=== PATIENT | female | born 1975 | race Caucasian/White ===

== ENCOUNTER 2023-07-10 12:22 | Inpatient (IN) | payer MEDICAID ==
[~2023-07-10] VITALS: Ht 177.8 cm; Wt 80.2 kg
[2023-07-10] MEDS ORDERED: HYDROcodone-ACET 10/325MG TAB PO ONE (13:30)
[2023-07-10 14:12] LABS: Basophils # (auto) 0 10 ^3/uL (0-0.2); Eosinophils # (auto) 0.1 10 ^3/uL (0-0.8); Hemoglobin 10.6 g/dL (12.2-16.2); Lymphocytes # (auto) 1.4 10 ^3/uL (0.4-5.4); Mean Corpuscular Hgb Conc. 30.5 g/dL (32.0-36.0); Monocytes # (auto) 0.6 10 ^3/uL (0-1.3); Nucleated Red Blood Cells % 0.1 %
[2023-07-10 14:14] LABS: Basophils % (auto) 0.7 % (0.0-2.0); Eosinophils % (auto) 2.1 % (0.0-7.0); Hematocrit 34.8 % (36.0-46.0); Lymphocytes % (auto) 25.1 % (10.0-50.0); Mean Corpuscular Hemoglobin 22.3 pg (28.0-32.0); Mean Corpuscular Volume 73.3 fL (80.0-100.0); Monocytes % (auto) 10.2 % (0.0-12.0); Neutrophils # (auto) 3.5 10 ^3/uL (1.6-8.6); Neutrophils % (auto) 61.9 % (37.0-80.0); Red Blood Cells 4.75 10^6/uL (4.0-5.20); White Blood Cell 5.6 10^3/uL (4.4-10.8)
[2023-07-10 14:15] VITALS: PULSE 90; RESP 15; O2SAT 98
[2023-07-10 14:16] LABS: Chloride 106 mmol/L (98-107); Potassium 4.1 mmol/L (3.5-5.1); Sodium 140 mmol/L (136-145)
[2023-07-10 14:17] LABS: Anion Gap 7 (5-15); Calcium 9.8 mg/dL (8.5-10.1); Carbon Dioxide 27 mmol/L (20-30)
[2023-07-10 14:22] LABS: BUN/Creatinine Ratio 16.7 (10.0-20.0); Blood Urea Nitrogen 14 mg/dL (9-23); Glucose 78 mg/dL (74-106)
[2023-07-10 14:25] LABS: Urine Epithelial Cast None Seen /hpf (<5)
[2023-07-10 14:26] LABS: Red Cell Distribution Width 20.8 % (11.8-14.3)
[2023-07-10 14:44] LABS: Amphetamine Screen, Urine Pos (NEGATIVE); Barbiturate Scree,Urine Neg (NEGATIVE); Benzodiazephine Screen, Urine Pos (NEGATIVE); Cannabinoid Screen, Urine Neg (NEGATIVE); Cocaine Screen, Urine Neg (NEGATIVE); Opiate Scree,Urine Neg (NEGATIVE); Phencyclidine Screen, Urine Neg (NEGATIVE)
[2023-07-10 14:45] LABS: Urine Bacteria FEW /hpf (None Seen); Urine Blood Negative /uL (Negative); Urine Clarity HAZY (Clear); Urine Color Yellow (Yellow); Urine Mucus FEW (None Seen); Urine Protein, UAD Negative (Negative); Urine Specific Gravity 1.018 (1.001-1.035); Urine Urobilinogen Normal (Negative); Urine WBC 6 /hpf (0 - 5); Urine pH 6.5 (5.0-8.0)
[2023-07-10 15:00] LABS: Platelet Estimate Adequate
[2023-07-10 15:03] LABS: Anisocytosis Slight
[2023-07-10 15:04] LABS: Hypochromia Moderate
[2023-07-10 15:05] LABS: Stomatocytes Few
[2023-07-10 15:06] LABS: Ovalocytes FEW
[2023-07-10] MEDS ORDERED: NITROGLYCERIN 0.4 MG SL TAB SL PRN (16:45)
[2023-07-10] MEDS ORDERED: HYDROmorphone HCL 2 MG/ML VL/or syr IV PRN (16:45)
[2023-07-10] MEDS ORDERED: SOD CHL 0.45% 1,000 ML IV ONE (16:45)
[2023-07-10] MEDS ORDERED: MORPHINE SULFATE INJ 2 MG/ml SYRG IV PRN (16:45)
[2023-07-10] MEDS: KETOROLAC TROMETH 30 MG/ML 1ML VIAL IV SCH ×2 (18:40→22:17)
[2023-07-10 19:30] VITALS: PULSE 80; RESP 16; O2SAT 98
[2023-07-10] MEDS: HYDROmorphone HCL 2 MG/ML VL/or syr IV PRN (21:36)
[2023-07-10] MEDS: PANTOPRAZOLE 40 MG TAB PO SCH (21:36)
[2023-07-10] MEDS ORDERED: METOPROLOL TARTRATE 25 MG TAB PO ONE (22:00)
[2023-07-11] VITALS (8 sets, daily range): BP systolic 115–152; BP diastolic 62–101; PULSE 61–90; RESP 16–20; TEMP 97.6–98.8; O2SAT 95–98
[2023-07-11] MEDS ORDERED: METH-1181 PO (01:16)
[2023-07-11] MEDS ORDERED: HYDR-4072 PO (01:16)
[2023-07-11] MEDS ORDERED: GABA-339 PO (01:16)
[2023-07-11] MEDS ORDERED: PANT40T PO (01:16)
[2023-07-11] MEDS: HYDROmorphone HCL 2 MG/ML VL/or syr IV PRN ×3 (02:09→20:07)
[2023-07-11] MEDS: KETOROLAC TROMETH 30 MG/ML 1ML VIAL IV SCH ×4 (05:40→23:00)
[2023-07-11 06:27] LABS: Basophils # (auto) 0 10 ^3/uL (0-0.2); Basophils % (auto) 0.5 % (0.0-2.0); Eosinophils # (auto) 0.2 10 ^3/uL (0-0.8); Hemoglobin 9.2 g/dL (12.2-16.2); Mean Corpuscular Hemoglobin 22.3 pg (28.0-32.0); Nucleated Red Blood Cells % 0.1 %; Red Blood Cells 4.13 10^6/uL (4.0-5.20); Red Cell Distribution Width 20.3 % (11.8-14.3)
[2023-07-11 06:30] LABS: Eosinophils % (auto) 3.4 % (0.0-7.0); Hematocrit 30.3 % (36.0-46.0); Lymphocytes # (auto) 1.9 10 ^3/uL (0.4-5.4); Mean Corpuscular Hgb Conc. 30.5 g/dL (32.0-36.0); Mean Corpuscular Volume 73.2 fL (80.0-100.0); Monocytes # (auto) 0.7 10 ^3/uL (0-1.3); Monocytes % (auto) 13.6 % (0.0-12.0); Neutrophils # (auto) 2.5 10 ^3/uL (1.6-8.6); Neutrophils % (auto) 47.5 % (37.0-80.0); White Blood Cell 5.3 10^3/uL (4.4-10.8)
[2023-07-11 06:41] LABS: Alanine Aminotransferase 32 U/L (7-40); Albumin 3.8 g/dL (3.2-4.8); Alkaline Phosphatase 105 U/L (46-116); Anion Gap 7 (5-15); Aspartate Aminotransferase 27 U/L (13-40); BUN/Creatinine Ratio 18.1 (10.0-20.0); Blood Urea Nitrogen 17 mg/dL (9-23); Calcium 9.5 mg/dL (8.5-10.1); Carbon Dioxide 27 mmol/L (20-30); Chloride 105 mmol/L (98-107); Cholesterol 167 mg/dL (< 200); Glucose 93 mg/dL (74-106); HDL Cholesterol 31 mg/dL (40-59); LDL Cholesterol 113 mg/dL (< 100); Potassium 4.1 mmol/L (3.5-5.1); Sodium 139 mmol/L (136-145); Triglycerides 173 mg/dL (< 150)
[2023-07-11 06:42] LABS: Bilirubin, Total 0.2 mg/dL (0.2-1.0); Total Protein 5.9 g/dL (5.7-8.2)
[2023-07-11] MEDS ORDERED: IOHEXOL 350 MG/ML 100ML IJ ONE (08:22)
[2023-07-11] MEDS ORDERED: OMNIPAQUE 12mg/ml 500ml ORAL SOLUTION PO ONE (09:18)
[2023-07-11] MEDS: PANTOPRAZOLE 40 MG TAB PO SCH (11:00)
[2023-07-11] MEDS ORDERED: HYDROcodone-ACET 10/325MG TAB PO PRN (18:00)
[2023-07-11] MEDS: METHOCARBAMOL 500 MG TAB PO SCH (21:42)
[2023-07-12] VITALS (8 sets, daily range): BP systolic 116–165; BP diastolic 73–92; PULSE 76–88; RESP 14–20; TEMP 97.1–98.2; O2SAT 97–99
[2023-07-12] MEDS: HYDROmorphone HCL 2 MG/ML VL/or syr IV PRN ×4 (03:07→21:30)
[2023-07-12] MEDS: KETOROLAC TROMETH 30 MG/ML 1ML VIAL IV SCH ×4 (04:26→22:30)
[2023-07-12 07:02] LABS: Basophils # (auto) 0 10 ^3/uL (0-0.2); Eosinophils # (auto) 0.2 10 ^3/uL (0-0.8); Lymphocytes # (auto) 1.4 10 ^3/uL (0.4-5.4); Monocytes # (auto) 0.7 10 ^3/uL (0-1.3); Nucleated Red Blood Cells % 0.1 %; Red Blood Cells 4.04 10^6/uL (4.0-5.20)
[2023-07-12 07:05] LABS: Basophils % (auto) 0.2 % (0.0-2.0); Eosinophils % (auto) 3.7 % (0.0-7.0); Hematocrit 29.7 % (36.0-46.0); Hemoglobin 9.3 g/dL (12.2-16.2); Lymphocytes % (auto) 23.8 % (10.0-50.0); Mean Corpuscular Hgb Conc. 31.2 g/dL (32.0-36.0); Mean Corpuscular Volume 73.6 fL (80.0-100.0); Monocytes % (auto) 11.7 % (0.0-12.0); Neutrophils # (auto) 3.5 10 ^3/uL (1.6-8.6); Neutrophils % (auto) 60.6 % (37.0-80.0); Red Cell Distribution Width 19.9 % (11.8-14.3); White Blood Cell 5.8 10^3/uL (4.4-10.8)
[2023-07-12 07:24] LABS: Anion Gap 9 (5-15); Carbon Dioxide 23 mmol/L (20-30); Chloride 103 mmol/L (98-107); Potassium 4.4 mmol/L (3.5-5.1); Sodium 135 mmol/L (136-145)
[2023-07-12 07:25] LABS: Calcium 9.2 mg/dL (8.7-10.4)
[2023-07-12 07:30] LABS: BUN/Creatinine Ratio 16.5 (10.0-20.0); Blood Urea Nitrogen 16 mg/dL (9-23); Glucose 108 mg/dL (74-106)
[2023-07-12 07:31] LABS: % Iron Saturation 7.6 % (15-50)
[2023-07-12] MEDS: METHOCARBAMOL 500 MG TAB PO SCH ×2 (09:30→22:30)
[2023-07-12] MEDS: PANTOPRAZOLE 40 MG TAB PO SCH (09:30)
[2023-07-13] VITALS (7 sets, daily range): BP systolic 126–154; BP diastolic 76–88; PULSE 76–86; RESP 16–20; TEMP 97.4–98.7; O2SAT 95–98
[2023-07-13] MEDS: SULFAMETHOX W/TRIMETH(800/160MG) DS TAB PO SCH ×3 (00:21→22:31)
[2023-07-13] MEDS: KETOROLAC TROMETH 30 MG/ML 1ML VIAL IV SCH ×4 (04:31→22:31)
[2023-07-13 06:24] LABS: Urine Epithelial Cast None Seen /hpf (<5)
[2023-07-13 06:45] LABS: Urine Bacteria NONE SEEN /hpf (None Seen); Urine Blood Negative /uL (Negative); Urine Clarity Clear (Clear); Urine Protein, UAD Negative (Negative); Urine Specific Gravity 1.009 (1.001-1.035); Urine Urobilinogen Normal (Negative); Urine WBC <1 /hpf (0 - 5); Urine pH 5.5 (5.0-8.0)
[2023-07-13 06:53] LABS: Urine Color Straw (Yellow)
[2023-07-13] MEDS: HYDROmorphone HCL 2 MG/ML VL/or syr IV PRN ×3 (08:41→20:15)
[2023-07-13] MEDS: METHOCARBAMOL 500 MG TAB PO SCH ×2 (10:16→22:31)
[2023-07-13] MEDS: PANTOPRAZOLE 40 MG TAB PO SCH (10:16)
[2023-07-14] MEDS: HYDROmorphone HCL 2 MG/ML VL/or syr IV PRN ×2 (01:50→07:59)
[2023-07-14 04:32] VITALS: BP 101/64; PULSE 87; RESP 20; TEMP 97.7; O2SAT 96
[2023-07-14] MEDS: KETOROLAC TROMETH 30 MG/ML 1ML VIAL IV SCH ×2 (04:49→10:28)
[2023-07-14 08:00] VITALS: BP 133/79; PULSE 76; RESP 16
[2023-07-14 09:00] VITALS: BP 133/79; PULSE 76; RESP 20; TEMP 97.5; O2SAT 97
[2023-07-14] MEDS: SULFAMETHOX W/TRIMETH(800/160MG) DS TAB PO SCH (09:18)
[2023-07-14] MEDS: METHOCARBAMOL 500 MG TAB PO SCH (09:18)
[2023-07-14] MEDS: PANTOPRAZOLE 40 MG TAB PO SCH (09:18)
[2023-07-14 11:00] VITALS: BP 133/79; PULSE 76; RESP 16; TEMP 97.5
[2023-07-14] MEDS ORDERED: FERROUS SULFATE 325mg EC TAB PO SCH (18:00)
== END 2023-07-14 12:43 | disposition home or self-care (01) | DRG 135 ==
LOC: ER 12:22 → TELE 17:06 → TELE-EAST 23:41
PROVIDERS: ADMIT Specialist; ATTEND Specialist
DX: S22.41XA Multiple fractures of ribs, right side, initial encounter for closed fracture (principal); S22.20XA Unspecified fracture of sternum, initial encounter for closed fracture; S32.019A Unspecified fracture of first lumbar vertebra, initial encounter for closed fracture; D62 Acute posthemorrhagic anemia; E86.1 Hypovolemia; F11.20 Opioid dependence, uncomplicated; D50.9 Iron deficiency anemia, unspecified; F15.10 Other stimulant abuse, uncomplicated; M47.817 Spondylosis without myelopathy or radiculopathy, lumbosacral region; F17.210 Nicotine dependence, cigarettes, uncomplicated; S42.022A Displaced fracture of shaft of left clavicle, initial encounter for closed fracture; F41.9 Anxiety disorder, unspecified; I10 Essential (primary) hypertension; J44.9 Chronic obstructive pulmonary disease, unspecified; N39.0 Urinary tract infection, site not specified; K21.9 Gastro-esophageal reflux disease without esophagitis; R00.0 Tachycardia, unspecified; V89.2XXA Person injured in unspecified motor-vehicle accident, traffic, initial encounter; Y92.410 Unspecified street and highway as the place of occurrence of the external cause; Z80.8 Family history of malignant neoplasm of other organs or systems; Z82.49 Family history of ischemic heart disease and other diseases of the circulatory system; Y93.89 Activity, other specified; Y99.8 Other external cause status
CPT/HCPCS: 36415; 71045; 71275; 74178; 80048; 80053; 80061; 80307; 81001; 82270; 83540; 83550; 84484; 85025; 87081; 93306; G0378; J1885